=== PATIENT | female | born 1960 | race Caucasian/White ===

== ENCOUNTER 2021-07-21 11:47 | Emergency (ER) | payer OTHER ==
[~2021-07-21] VITALS: Ht 167.6 cm; Wt 71.0 kg
[2021-07-21] MEDS ORDERED: LORazepam 2 MG/ML, 1ML IVPush ONE (12:30)
[2021-07-21] MEDS ORDERED: PLEASE ENTER ALLERGIES MC SCH (12:30)
[2021-07-21] MEDS ORDERED: LORazepam 2 MG/ML, 1ML ONE (12:59)
--- NOTE | 2021-07-21 13:10 | NUR ---
MEDS GIVEN PER ORDERS TO MRI AT THIS TIME
[2021-07-21] MEDS ORDERED: GADOTERATE 7.5 MMOL/15ML SYR ONE (13:45)
--- NOTE | 2021-07-21 13:55 | NUR ---
PATIENT IN MRI.
[2021-07-21 14:20] VITALS: BP 129/83
--- NOTE | 2021-07-21 14:42 | NUR ---
Patient given discharge instructions and prescriptions and they have confirmed that they understand the instructions. Patient ambulatory with steady gait. NAD, all questions answered appropriately, denies additional needs at this time. No personal belongings left in room after discharge.
== END 2021-07-21 14:43 | disposition home or self-care (01) ==
LOC: ED 14:31
DX: L04.0 Acute lymphadenitis of face, head and neck (principal)
CPT/HCPCS: 70553; 96374; 99285; A9575; J2060